=== PATIENT | male | born 1970 ===

== ENCOUNTER → 2019-07-15 13:56 | Outpatient (CLI) | payer OTHER | END | disposition home or self-care (01) | LOC: LAB 13:56 | DX: R05 Cough (principal); R50.81 Fever presenting with conditions classified elsewhere; R73.09 Other abnormal glucose; E55.9 Vitamin D deficiency, unspecified; R33.8 Other retention of urine; J11.1 Influenza due to unidentified influenza virus with other respiratory manifestations; N40.1 Benign prostatic hyperplasia with lower urinary tract symptoms ==

== ENCOUNTER 2019-10-29 12:03 | Emergency (ER) | payer OTHER ==
[~2019-10-29] VITALS: Ht 175.3 cm; Wt 83.9 kg
[2019-10-29] MEDS ORDERED: FORTAMET500 MG (12:22)
[2019-10-29] MEDS ORDERED: ZESTRIL20 MG (12:22)
== END 2019-10-29 16:28 | disposition home or self-care (01) ==
LOC: ER 12:03
DX: S01.411A Laceration without foreign body of right cheek and temporomandibular area, initial encounter (principal); V29.9XXA Motorcycle rider (driver) (passenger) injured in unspecified traffic accident, initial encounter; S42.141A Displaced fracture of glenoid cavity of scapula, right shoulder, initial encounter for closed fracture

== ENCOUNTER 2019-11-03 14:26 | Outpatient (CLI) | payer OTHER ==
[~2019-11-03 14:26] MED LIST: FORTAMET500 MG; ZESTRIL20 MG
== END 2019-11-03 15:33 | disposition home or self-care (01) ==
LOC: RAD 14:26
DX: S42.144A Nondisplaced fracture of glenoid cavity of scapula, right shoulder, initial encounter for closed fracture (principal)

== ENCOUNTER 2019-12-17 10:01 | Outpatient (CLI) | payer OTHER | END 2019-12-17 10:36 | disposition home or self-care (01) | LOC: RAD 10:01 | DX: S42.141A Displaced fracture of glenoid cavity of scapula, right shoulder, initial encounter for closed fracture (principal) ==

== ENCOUNTER 2023-05-16 07:28 | Outpatient (CLI) | payer OTHER | END 2023-05-16 08:11 | disposition home or self-care (01) | LOC: LAB 07:28 | DX: N40.0 Benign prostatic hyperplasia without lower urinary tract symptoms (principal); E78.5 Hyperlipidemia, unspecified; E55.9 Vitamin D deficiency, unspecified; K52.9 Noninfective gastroenteritis and colitis, unspecified; E11.9 Type 2 diabetes mellitus without complications; D64.9 Anemia, unspecified; E66.9 Obesity, unspecified; N42.9 Disorder of prostate, unspecified; R80.8 Other proteinuria; R10.9 Unspecified abdominal pain; Z12.11 Encounter for screening for malignant neoplasm of colon ==

== ENCOUNTER → 2023-05-16 | Outpatient (CLI) | payer OTHER | END | disposition home or self-care (01) | LOC: SONOGRAMA 10:35 | PROVIDERS: ATTEND Internal Medicine Gastroenterology | DX: R16.2 Hepatomegaly with splenomegaly, not elsewhere classified (principal) ==

== ENCOUNTER 2025-02-25 10:34 | Outpatient (CLI) | payer OTHER ==
[2025-02-25 11:29] LABS: URINE APPEARANCE Clear; URINE BILIRRUBIN Negative (NEGATIVE); URINE BLOOD Negative; URINE COLOR Yellow; URINE GLUCOSE Negative (NEGATIVE); URINE KETONE Negative (NEGATIVE); URINE LEUKOCYTE Negative; URINE NITRATE Negative; URINE PROTEIN Negative (NEGATIVE); URINE UROBILINOGEN 0.2 E.U./dl
[2025-02-25 11:33] LABS: URINE BACTERIA 59.9 uL (0.0-1933); URINE RBC 4.2 uL (0.0-20.8); URINE WBC 3.4 uL (0.0-23.2)
[2025-02-25 11:38] LABS: BASO % 0.5 % (0.1-1.2); EOS # 0.08 (0.04-0.54); EOS % 1.4 % (0.7-7.0); HEMATOCRIT 43.5 % (40.1-51.0); HEMOGLOBIN 15.1 g/dL (13.7-17.5); LYMPH # 1.14 (1.18-3.74); LYMPH % 19.9 % (19.3-53.1); MEAN CORPUSCULAR HEMOGLOBIN 29.4 pg (25.6-32.2); MONO # 0.32 (0.24-0.82); MONO % 5.6 % (4.7-12.5); NEUT # 4.14 (1.56-6.13); NEUT % 72.4 % (34.0-71.1); PLATELET COUNT 217 K/uL (163-369); RED BLOOD COUNT 5.13 M/uL (4.63-6.08); RED CELL DISTRIBUTION WIDTH 12.3 % (11.6-14.4)
[2025-02-25 11:48] LABS: ERYTHROCYTE SEDIMENTATION RATE 8 mm/hr (0-20)
[2025-02-25 12:13] LABS: URINE CAST 0.14 uL (0.0-1.40)
[2025-02-25 12:19] LABS: ALBUMIN 3.8 gm/dL (3.4-5.0); ALKALINE PHOSPHATASE 59 U/L (50-136); ALT/SGPT 37 U/L (12-78); ANION GAP 8 (10.0-20.0); AST/SGOT 19 U/L (15-37); BILIRUBIN TOTAL 0.99 mg/dL (0.3-1.2); BLOOD UREA NITROGEN 12 mg/dL (7-18); BUN CREA RATIO 13 (7.0-25.0); CALCIUM 9.3 mg/dL (8.5-10.1); CARBON DIOXIDE 32 mEq/L (21-32); CHLORIDE 108 mmol/L (98-107); CHOL HDL RATIO 2.1 (0-5.0); CHOLESTEROL 173 mg/dL (0-200); GFR 88.61; GLOBULINA 3.1 G/DL (2.4-3.5); GLUCOSE FASTING 89 mg/dL (65-100); HDL 83 mg/dl (40-60); LDL 79 mg/dl (0-130); OSMOLALITY SERUM 286 MOSM/KG (275-295); POTASSIUM 4.14 mEq/L (3.5-5.1); PROSTATIC SPECIFIC ANTIGEN 0.308 NG/ML (0.010-4.00); SODIUM 144 mmol/L (136-145); T4 FREE 1.29 NG/ML (0.76-1.46); TOTAL PROTEIN 6.9 gm/dL (6.4-8.2); TRIGLYCERIDES 56 mg/dL (0-150); TSH 0.585 uIU/mL (0.358-3.74); VLDL 11 (0-39)
[2025-02-25 12:20] LABS: C-REACTIVE PROTEIN < 0.29 MG/DL (0.00-0.29)
[2025-02-25 12:47] LABS: FOLIC ACID 8.16 ng/ml (4.78-20); VITAMIN D3 25 HYDROXY 43.14 ng/ml (30-120)
== END 2025-02-25 10:40 | disposition home or self-care (01) ==
LOC: LAB 10:34
PROVIDERS: ATTEND General Practice
DX: E34.9 Endocrine disorder, unspecified (principal); E78.6 Lipoprotein deficiency; D51.9 Vitamin B12 deficiency anemia, unspecified; R97.1 Elevated cancer antigen 125 [CA 125]; E07.9 Disorder of thyroid, unspecified; M54.50 Low back pain, unspecified; E55.9 Vitamin D deficiency, unspecified; D64.9 Anemia, unspecified; E78.5 Hyperlipidemia, unspecified; R23.9 Unspecified skin changes; I10 Essential (primary) hypertension; E66.9 Obesity, unspecified; N42.9 Disorder of prostate, unspecified